=== PATIENT | male | born 1980 | race Two or more races ===

== ENCOUNTER 2017-04-21 14:11 | Emergency (ER) | payer OTHER ==
[~2017-04-21] VITALS: Ht 175.3 cm; Wt 93.0 kg
[2017-04-21 14:13] VITALS: BP 120/74
== END 2017-04-21 14:47 | disposition home or self-care (01) ==
LOC: ED 14:40
DX: M25.531 Pain in right wrist (principal); M25.532 Pain in left wrist
CPT/HCPCS: 99283